=== PATIENT | female | born 2000 | race Caucasian/White ===

== ENCOUNTER → 2020-05-11 | Outpatient (CLI) | payer OTHER ==
[2020-05-11 17:22] LABS: HEPATITIS C VIRUS ABY INDEX 0.1 INDEX (<0.8); HIV 1&2 SCREEN CENTAUR NEGATIVE (NEGATIVE)
[2020-05-11 19:59] LABS: CHLAMYDIA DNA AMPLIFICATION NEGATIVE (NEGATIVE); GC DNA AMPLIFICATION NEGATIVE (NEGATIVE)
== END ==
LOC: M WUC 13:57
PROVIDERS: ATTEND Physician Assistant
DX: N76.0 Acute vaginitis (principal)

== ENCOUNTER → 2020-06-11 | Outpatient (REF) | payer OTHER | LOC: M WUC 19:28 | PROVIDERS: ATTEND Physician Assistant | DX: R30.0 Dysuria (principal) ==

== ENCOUNTER 2022-01-17 01:18 | Emergency (ER) | payer OTHER ==
[~2022-01-17] VITALS: Ht 157.5 cm; Wt 104.5 kg
[~2022-01-17 01:18] MED LIST: RALTEGRAVIR 400 MG TAB (ISENTRESS) PO SCH; TRUVADA 200MG/300MG TABLET PO SCH
[2022-01-17 01:19] VITALS: BP 134/79
[2022-01-17 03:31] LABS: BASO % 0.3 % (0.0-1.0); EOS # 0.1 10^3/uL (0.0-0.5); EOS % 0.5 % (0.0-3.0); HEMATOCRIT 42.5 % (36.0-47.0); LYMPH # 3.8 10^3/uL (1.5-5.0); LYMPH % 38.1 % (24.0-44.0); MEAN CORPUSCULAR HEMOGLOBIN 30.2 pg (27.0-33.0); MEAN CORPUSCULAR HGB CONC 35.3 g/dl (32.0-36.5); MEAN CORPUSCULAR VOLUME 85.5 fl (80.0-96.0); MONO # 0.6 10^3/uL (0.0-0.8); MONO % 6.4 % (2.0-8.0); NEUTROPHILS # 5.4 10^3/uL (1.5-8.5); NEUTROPHILS % 54.5 % (36.0-66.0); PLATELET COUNT, AUTOMATED 305 10^3/uL (150-450); RED BLOOD COUNT 4.97 10^6/uL (4.00-5.40); WHITE BLOOD COUNT 9.8 10^3/uL (4.0-10.0)
[2022-01-17 04:17] LABS: HCG, SERUM QUALITATIVE NEGATIVE (NEGATIVE)
[2022-01-17 04:26] LABS: ALBUMIN 3.9 GM/DL (3.2-5.2); ALT/SGPT 24 U/L (12-78); BILIRUBIN,TOTAL 0.2 MG/DL (0.2-1.0); BLOOD UREA NITROGEN 10 MG/DL (7-18); CALCIUM LEVEL 8.7 MG/DL (8.5-10.1); CARBON DIOXIDE LEVEL 24 MEQ/L (21-32); CHLORIDE LEVEL 113 MEQ/L (98-107); CREATININE FOR GFR 0.67 MG/DL (0.55-1.30); GLOMERULAR FILTRATION RATE > 60.0 (>60); GLUCOSE, FASTING 98 MG/DL (70-100); POTASSIUM SERUM 4.2 MEQ/L (3.5-5.1); SODIUM LEVEL 145 MEQ/L (136-145); TOTAL PROTEIN 7.2 GM/DL (6.4-8.2)
[2022-01-17] MEDS ORDERED: cefTRIAXone 500MG VIAL (J0696 PER 250MG) IM ONE (04:55)
[2022-01-17] MEDS ORDERED: LIDOCAINE 1% SDV 5ML VIAL DILUENT ONE (04:55)
[2022-01-17] MEDS ORDERED: EXPOSURE KIT-ADULT 7 DAY SUPPLY PO ONE (04:55)
[2022-01-17] MEDS ORDERED: metroNIDAZOLE (FLAGYL) 500MG TABLET PO ONE (04:55)
[2022-01-17] MEDS ORDERED: ULIPRISTAL ACETATE 30MG TAB (ELLA) PO ONE (04:55)
[2022-01-17] MEDS ORDERED: DOXYCYCLINE HYCLATE 100MG TABLET PO ONE (04:55)
[2022-01-17] MEDS ORDERED: TRUVADA 200MG/300MG TABLET PO ONE (05:00)
[2022-01-17] MEDS ORDERED: RALTEGRAVIR 400 MG TAB (ISENTRESS) PO ONE (05:00)
[2022-01-17] MEDS ORDERED: RALT40TA PO (05:05)
[2022-01-17] MEDS ORDERED: EMTR1TAB16 PO (05:05)
[2022-01-17] MEDS ORDERED: DOXY-342 PO (05:05)
[2022-01-17] MEDS ORDERED: ONDA4TAB6 PO (05:06)
[2022-01-17 06:38] LABS: GC DNA AMPLIFICATION NEGATIVE (NEGATIVE)
[2022-01-17 09:27] LABS: HEPATITIS B SURFACE ANTIBODY NEGATIVE (POSITIVE)
[2022-01-17 10:07] LABS: HEPATITIS C VIRUS ABY INDEX < 0.0 INDEX (<0.8); HIV 1&2 SCREEN CENTAUR NEGATIVE (NEGATIVE)
[2022-01-17 11:21] LABS: HEPATITIS B SURFACE ANTIGEN NEGATIVE (NEGATIVE)
== END 2022-01-17 06:18 | disposition home or self-care (01) ==
LOC: M ED 01:18
DX: Z04.41 Encounter for examination and observation following alleged adult rape (principal); Y92.133 Barracks on military base as the place of occurrence of the external cause; F17.290 Nicotine dependence, other tobacco product, uncomplicated
CPT/HCPCS: 80053; 84703; 85025; 86706; 86780; 86803; 87210; 87340; 87389; 87810; 87850; 96372; 99283; J0696

== ENCOUNTER → 2022-02-10 | Outpatient (REF) ==
[~2022-02-10] MED LIST changes: +DOXY100C81 PO; +EMTR1TAB16 PO; +ONDA4TAB6 PO; +RALT40TA PO; -RALTEGRAVIR 400 MG TAB (ISENTRESS) PO SCH; -TRUVADA 200MG/300MG TABLET PO SCH
[2022-02-10 13:22] LABS: RSV AMPLIFICATION NEGATIVE (NEGATIVE)
== END ==
LOC: M LABSMTC 11:32
PROVIDERS: ATTEND Family Medicine
DX: Z11.52 Encounter for screening for COVID-19 (principal)

== ENCOUNTER 2022-08-07 11:07 | Emergency (ER) | payer OTHER ==
[~2022-08-07] VITALS: Ht 157.5 cm; Wt 101.3 kg
[2022-08-07 11:29] VITALS: BP 137/88
[2022-08-07] MEDS ORDERED: ACETAMINOPHEN 500 MG TAB PO ONE (13:15)
[2022-08-07] MEDS ORDERED: BOOSTRIX VACCINE (TETANUS/DIPHTH/ACEL. PERTUSSIS) 0.5ML SYR IM.IMMUN ONE (15:25)
[2022-08-07] MEDS ORDERED: CEPH500C PO (15:25)
== END 2022-08-07 17:11 | disposition home or self-care (01) ==
LOC: M ED 11:07
DX: S61.011A Laceration without foreign body of right thumb without damage to nail, initial encounter (principal); W26.8XXA Contact with other sharp object(s), not elsewhere classified, initial encounter; Y92.89 Other specified places as the place of occurrence of the external cause; Y93.89 Activity, other specified; Y99.0 Civilian activity done for income or pay

== ENCOUNTER → 2024-11-11 | Outpatient (REF) | payer OTHER ==
[~2024-11-11] MED LIST changes: +CEPH500C PO; +DOXY-442 PO; -DOXY100C81 PO; +ONDA-282 PO; -ONDA4TAB6 PO
[2024-11-13 13:12] LABS: HPV APTIMA Not Detected (Not Detected)
== END ==
LOC: M SFHCWAGY 17:25
PROVIDERS: ATTEND Nurse Practitioner Family
DX: Z12.4 Encounter for screening for malignant neoplasm of cervix (principal); N93.0 Postcoital and contact bleeding; R87.612 Low grade squamous intraepithelial lesion on cytologic smear of cervix (LGSIL)
CPT/HCPCS: 87624; G0123

== ENCOUNTER 2024-11-12 12:03 | Emergency (ER) | payer OTHER ==
[~2024-11-12] VITALS: Ht 157.5 cm; Wt 77.9 kg
[2024-11-12] MEDS: ONDANSETRON 4MG 2ML VIAL IV ONE (14:26)
[2024-11-12 14:49] LABS: BASO # 0.0 10^3/uL (0.0-0.2); BASO % 0.2 % (0.0-1.0); EOS # 0.0 10^3/uL (0.0-0.5); EOS % 0.1 % (0.0-3.0); LYMPH # 1.0 10^3/uL (1.5-5.0); LYMPH % 6.8 % (24.0-44.0); MONO # 0.6 10^3/uL (0.0-0.8); MONO % 3.8 % (2.0-8.0); NEUTROPHILS # 12.9 10^3/uL (1.5-8.5); NEUTROPHILS % 88.5 % (36.0-66.0); PLATELET COUNT, AUTOMATED 365 10^3/uL (150-450)
[2024-11-12 15:10] LABS: CALCIUM LEVEL 10.0 MG/DL (8.5-10.1); CARBON DIOXIDE LEVEL 23 MMOL/L (20-31); CHLORIDE LEVEL 106 MMOL/L (98-107); CREATININE FOR GFR 0.58 MG/DL (0.55-1.30); GLOMERULAR FILTRATION RATE > 90.0 (>60); POTASSIUM SERUM 4.1 MMOL/L (3.5-5.1); SODIUM LEVEL 142 MMOL/L (136-145)
[2024-11-12] MEDS: NS (Normal Saline) 0.9% 1,000 ML IV ONE (15:34)
[2024-11-12 16:04] LABS: KETONE, URINE AUTO RFX 2+ mg/dL (NEGATIVE); MUCUS, URINE RFX MODERATE (NEGATIVE); NITRITE, URINE AUTO RFX NEGATIVE (NEGATIVE); RBC, URINE AUTO RFX 2 /HPF (0-3); SQUAM EPITHELIAL CELL UR AURFX 4 /HPF (0-6); WBC, URINE AUTO RFX 5 /HPF (0-3)
[2024-11-12 16:19] LABS: LEUKOCYTE ESTERASE UR AUTO RFX TRACE (NEGATIVE)
[2024-11-12] MEDS: ACETAMINOPHEN *IV* 1,000 MG in IV 1 EA IV ONE (16:29)
[2024-11-12 16:31] LABS: HCG, SERUM QUALITATIVE NEGATIVE (NEGATIVE)
[2024-11-12] MEDS ORDERED: ISOVUE-370 76% 100 ML VIAL As Ordered ONE (16:41)
[2024-11-12] MEDS ORDERED: ONDA-282 PO (20:05)
[2024-11-12 21:01] VITALS: BP 103/53; TEMP 99.4; O2SAT 98
== END 2024-11-12 21:35 | disposition home or self-care (01) ==
LOC: M ED 12:03
DX: T83.32XA Displacement of intrauterine contraceptive device, initial encounter (principal); F17.200 Nicotine dependence, unspecified, uncomplicated; F12.10 Cannabis abuse, uncomplicated
CPT/HCPCS: 58301; 74177; 76705; 76856; 80047; 80048; 81001; 84703; 85025; 87086; 87486; 87581; 87633; 87798; 96374; 96375; 99284; J0131; J2405; J2765; Q9967